=== PATIENT | male | born 1960 | race Caucasian/White ===

== ENCOUNTER 2023-09-01 06:03 | Inpatient (IN) ==
--- NOTE | 2023-07-22 08:43 | Anesthesiology Consultation ---
Date of Service July 22, 2023 Assessment & Plan (1) Encounter for pre-operative examination: - Check BSG AM DOS - Infectious disease screening: Per assessment on 07/17/23: No known infectious disease contacts or current infectious disease symptoms. No noted recent Covid positive test result. - Dulaglutide instructions: Patient informed by PAT RN to stop 7 days prior to surgery. DOS 08/03/23. Advised last dose to be 07/26/23. Chart Review Chart Review: Acceptable Risk for Surgery and Patient NOT seen in Pre Admission Testing History Surgery Operation Date: 08/03/23 12:25 Proposed Procedures p C6-C7 Anterior Cervical Discectomy Fusion, Spinal Cord Monitoring - Myron Zambrano, Height/Weight Height: 5 ft 9 in Weight: 97.522 kg Allergies Allergy/AdvReac Type Severity Reaction Status Date / Time No Known Allergies Allergy Verified 07/17/23 08:02 Medications Home Medications Medication Instructions Recorded Confirmed Last Taken dulaglutide 3 mg/0.5 mL 3 mg subcut WK 07/16/23 07/17/23 Unknown subcutaneous pen injector (Trulicity) gabapentin 400 mg capsule 400 mg PO TID 07/16/23 07/17/23 Unknown glipizide 5 mg tablet 5 mg PO BID 07/16/23 07/17/23 Unknown insulin lispro 100 unit/mL 13 - 18 sliding scale dose subcut 07/16/23 07/17/23 Unknown subcutaneous solution (Humalog USEASDIRECTD U-100 Insulin) metformin 1,000 mg tablet 1,000 mg PO BID 07/16/23 07/17/23 Unknown amitriptyline 50 mg tablet 50 mg PO HS 07/17/23 07/17/23 Unknown cyclobenzaprine 10 mg tablet 10 mg PO BID 07/17/23 07/17/23 Unknown fenofibrate micronized 67 mg 67 mg PO QPM 07/17/23 07/17/23 Unknown capsule lisinopril 40 mg tablet 40 mg PO QAM 07/17/23 07/17/23 Unknown meloxicam 7.5 mg tablet 7.5 mg PO BID 07/17/23 07/17/23 Unknown oxycodone 20 mg tablet,crush 20 mg PO BID 07/17/23 07/17/23 Unknown resistant,extended release 12 hr (OxyContin) oxycodone-acetaminophen 10 mg-325 1 tab PO TID 07/17/23 07/17/23 Unknown mg tablet (Percocet) Past Medical History Medical History Cervical radiculopathy Chronic back pain Diabetes Dyslipidemia HTN (hypertension) Idiopathic polyneuropathy Past Family History Family History Other No family history of adverse response to anesthesia Past Surgical History Surgical History Hx of colonoscopy Hx of fusion of cervical spine C5-C6 Hx of hernia repair Hx of spinal surgery decompression lumbar area Social History Smoking Status: Current every day smoker Smoking cigarettes per day: 15 per day- advised Do You Dip or Chew Tobacco: No Hx Alcohol Use: Yes alcohol intake frequency: holidays/special occasions only Hx Substance Use: No substance use type: does not use Lab Results Anesthesia Preop Results Results Anesthesia Widget: WBC 12.57 K/ul (4.8-10.8) H 07/21/23 Hgb 14.6 g/dl (14.0-18.0) 07/21/23 Hct 42.2 % (42.0-52.0) 07/21/23 Plt 188 K/uL (130-400) 07/21/23 Na 140 mmol/L (136-145) 07/21/23 K 4.8 mmol/L (3.5-5.1) 07/21/23 Cl 108 mmol/L (98-107) H 07/21/23 CO2 23 mmol/L (21-32) 07/21/23 BUN 30 mg/dl (6-23) H 07/21/23 Creat 1.16 mg/dl (0.6-1.4) 07/21/23 Glucose Level 69 mg/dl (70-99(Fasting)) L 07/21/23 PT 10.7 Seconds (9.0-12.0) 07/21/23 PTT 30 Seconds (21-31) 07/21/23 INR 1.0 (0.9-1.1) 07/21/23 Urine Color Yellow 07/21/23 Urine Appearance Clear (Clear) 07/21/23 Urine pH 5.0 (4.5-7.5) 07/21/23 Urine Specific [place]ora 1.013 (1.000-1.030) 07/21/23 Urine Protein 2+ (Negative) H 07/21/23 Urine Glucose (UA) Negative (Negative) 07/21/23 Urine Ketones Negative (Negative) 07/21/23 Urine Blood Negative (Negative) 07/21/23 Urine Nitrite Negative (Negative) 07/21/23 Urine Bilirubin Negative (Negative) 07/21/23 Urine Urobilinogen Negative (Negative) 07/21/23 Urine Leukocyte Esterase Negative (Negative) 07/21/23 Urine WBC (Auto) 0-5 /hpf (0-5) 07/21/23 Urine RBC (Auto) 0-2 /hpf (0-2) 07/21/23 Urine Hyaline Casts (Auto) 0-2 /lpf (0-2) 07/21/23 Urine Epithelial Cells (Auto) 0-2 /hpf (0-2) 07/21/23 Urine Bacteria (Auto) None Seen (None Seen) 07/21/23 Blood Type O Positive 07/21/23 Antibody Screen NEGATIVE 07/21/23 Testing Electrocardiogram Date: 07/21/23 Findings: + NSR @ (79) Chest X-Ray Date: 07/21/23 FINDINGS: Small linear densities at the right lung base favor subsegmental at electasis or scarring. Otherwise, lungs are clear. The heart is normal in size. No pleural effusions. No pneumothorax. Cervical spinal fusion hardware is noted. IMPRESSION: No acute process.
[2023-09-01] MEDS: LR 60ML/HR IV SCH (06:46)
[2023-09-01] MEDS: LR 15ML/HR IV SCH (06:46)
[2023-09-01] MEDS: CeleBREX 200 MG CAP PO SCH (06:47)
[2023-09-01] MEDS: GABAPENTIN 300 MG CAP PO SCH (06:47)
[2023-09-01] MEDS: ACETAMINOPHEN 500 MG TAB PO SCH (06:47)
[2023-09-01] MEDS ORDERED: PROPOFOL IV EMULSION 10 MG/ML 20 ML VIAL IV ONE (06:58)
[2023-09-01] MEDS ORDERED: fentaNYL citrate PF 100 MCG/2 ML VIAL ONE (06:58)
[2023-09-01] MEDS ORDERED: LIDOCAINE 2% 2 ML VIAL/AMP(20MG/ML) INFIL ONE (06:58)
[2023-09-01] MEDS ORDERED: ONDANSETRON INJ 2 MG/ML 2 ML VIAL ONE (06:58)
[2023-09-01] MEDS ORDERED: ROCURONIUM BROMIDE 10 MG/ML 5 ML VIAL IV ONE (06:58)
[2023-09-01] MEDS ORDERED: MIDAZOLAM HCL 1 MG/ML 2ML VIAL ONE (06:58)
[2023-09-01] MEDS ORDERED: DEXAMETHASONE SOD INJ 4 MG/ML VIAL ONE (06:58)
[2023-09-01] MEDS ORDERED: GLYCOPYRROLATE 0.2 MG/ML VIAL ONE (06:58)
[2023-09-01] MEDS ORDERED: SUGAMMADEX SODIUM 200 MG/2 ML VIAL IV ONE (07:05)
--- NOTE | 2023-09-01 07:36 | History & Physical Bridge Note ---
Date of Service September 01, 2023 History & Physical Bridge Note I have examined the patient, reviewed the History & Physical and in the interval since the performance of the History & Physical I have noted the following changes of clinical significance: no changes noted
[2023-09-01] MEDS ORDERED: PROMETHAZINE HCL 6.25 MG in SODIUM CHLORIDE 0.9% 50 ML IV PRN (07:38)
[2023-09-01] MEDS ORDERED: ATROPINE SULFATE 0.1 MG/ML 10ML SYR IV PRN (07:38)
[2023-09-01] MEDS ORDERED: ONDANSETRON INJ 2 MG/ML 2 ML VIAL IV PRN ×2 (07:38→11:01)
[2023-09-01] MEDS ORDERED: ePHEDrine sulfate 50 MG/ML AMP IV PRN (07:38)
--- NOTE | 2023-09-01 07:39 | History & Physical Report ---
Date of Service September 01, 2023 Assessment & Plan (1) Cervical stenosis of spinal canal: Plan: Anterior cervical discectomy and fusion see 6 C7, hardware removal C5-C6 History of Present Illness Chief Complaint: Neck and arm pain Primary Care Provider: Alvaro Kohler MD This is a 63-year-old male presents chronic persistent neck and arm pain and failing course of nonoperative care is here for surgical intervention. Allergies Allergy/AdvReac Type Severity Reaction Status Date / Time No Known Allergies Allergy Verified 09/01/23 06:32 Home Medications Medication Instructions Recorded Confirmed Type dulaglutide 3 mg/0.5 mL 3 mg subcut WK 07/16/23 09/01/23 History subcutaneous pen injector (Trulicity) gabapentin 400 mg capsule 400 mg PO TID 07/16/23 09/01/23 History glipizide 5 mg tablet 5 mg PO BID 07/16/23 09/01/23 History insulin lispro 100 unit/mL 13 - 18 sliding scale dose subcut 07/16/23 09/01/23 History subcutaneous solution (Humalog USEASDIRECTD U-100 Insulin) metformin 1,000 mg tablet 1,000 mg PO BID 07/16/23 09/01/23 History amitriptyline 50 mg tablet 50 mg PO HS 07/17/23 09/01/23 History cyclobenzaprine 10 mg tablet 10 mg PO BID 07/17/23 09/01/23 History fenofibrate micronized 67 mg 67 mg PO QPM 07/17/23 09/01/23 History capsule lisinopril 40 mg tablet 40 mg PO QAM 07/17/23 09/01/23 History meloxicam 7.5 mg tablet 7.5 mg PO BID 07/17/23 09/01/23 History oxycodone 20 mg tablet,crush 20 mg PO BID 07/17/23 09/01/23 History resistant,extended release 12 hr (OxyContin) oxycodone-acetaminophen 10 mg-325 1 tab PO TID 07/17/23 09/01/23 History mg tablet (Percocet) Past Med/Surg History Problem List (Updated 09/01/23 @ 07:37 by Myron Zambrano DO) Cervical stenosis of spinal canal Medical History Cervical radiculopathy Chronic back pain Diabetes Dyslipidemia HTN (hypertension) Idiopathic polyneuropathy Surgical History Hx of colonoscopy Hx of fusion of cervical spine C5-C6 Hx of hernia repair Hx of spinal surgery decompression lumbar area Family History Other No family history of adverse response to anesthesia Social History Smoking Status: Current every day smoker Tobacco Type: Cigarettes Cigarettes Per Day: 15 per day- advised; Second Hand Exposure: No; Do You Dip or Chew Tobacco: No; Tobacco Cessation Education Requested by Patient: No Hx Alcohol Use: Yes Hx Substance Use: No Preferred Language: Armenian Communication Ability: Effective Denture Model Maker Required: No Beliefs That Will Affect Care: None Current Living Situation: Alone Other Information That Helps Us Care for You: No Feels Safe at Home: Yes Safety Concerns: Feels Safe At This Time Assistive Devices: Denture - Upper and Glasses Physical Exam Physical Exam: Patient is alert and oriented Heart regular in rhythm Lungs clear Results & Data Results & Data Vital Signs (Past 12 Hours) Vital Signs Temp Pulse Resp BP Pulse Ox O2 Del Method 09/01/23 06:37 36.4 C L 80 20 170/95 H 99 Room Air
[2023-09-01] MEDS: ceFAZolin 2000MG 2,000 MG/15 ML SYR IV SCH ×2 (07:44→16:32)
[2023-09-01] MEDS: ceFAZolin 330 MG/ML 1 GM VIAL ONE (08:19)
--- NOTE | 2023-09-01 09:04 | Operative Report ---
Post Operative Report Pre & Post Diagnosis Operation Date: 09/01/23 07:45 Pre-Op Diagnosis: Cervical spinal stenosis with radiculopathy Post-Op Diagnosis: Same I identified the patient and participated in the time-out.: Yes Procedure Operation Date: 09/01/23 07:45 Actual Procedures #1 removal of anterior cervical plate C5-C6. #2 exploration of fusion C5-C6. #3 anterior cervical discectomy with bilateral foraminotomies C6-C7. #4 anterior cervical arthrodesis C6-C7. #5 placement spiral 10 mm cage filled with os design bone graft C6-C7. #6 application of K2 M plate and screws across C6- C7. Surgeon Myron Zambrano, Decision Support Analyst Sravanthi Todd Estimated Blood Loss 10 Findings Consistent with Post-Op Diagnosis Specimens None Indications This is a 63-year-old male who presents problems diagnosis of failed course of nonoperative care is here for surgical invention. Description of Procedure Patient met with identified informed consent obtained. Patient was then taken to the operative suite underwent patient placed in spine position on the Juvenal table with head Herr polisher balance screwhead. All bony promises well-padded eyes inspected to ensure no external pressure placed upon the. This point the anterior cervical spine was prepped and draped in normal sterile fashion. The assistance of fluoroscopy identifying the C6 vertebral body and a transverse incision was placed along the right anterior aspect of the cervical spine overlying this region. Blunt dissection with assistance of bipolar electrocautery was formed down to and exposing the anterior cervical spine from C5-C7. The plate was identified at C5-C6. It was subsequently removed. I explored the fusion mass noting it to be mature and intact. I then performed a complete discectomy of C6-C7 out to the uncovertebral notch bilaterally. [place] distraction pins utilized to assist in visualization. Removed all posterior annular fibers longitudinal ligament bilateral foraminotomies performed. Endplates were to subcortical bleeding bone and a 10 mm spiral cage filled with os design bone graft tapped in position. Distracting and pressors removed and a K2 M plate and screws applied with the assistance of fluoroscopy. The incision was then copiously irrigated explored to ensure no damage to surrounding structures or many bleeding. 10 round ELVA drain inserted. The incision was then closed with 2 Vicryl in the fascia and 4 Monocryl for final skin closure. Steri-Strips sterile dressing placed. Patient awakened taken to PACU stable condition. Please note spinal cord monitoring was utilized at the procedure no changes noted. Lastly Sravanthi Todd was present at the insert prior procedure and all the patient positioning complex portions of the surgery and final skin closure. I attest to the content of the Intraoperative Record and any orders documented therein. Any exceptions are noted below.
[2023-09-01] MEDS: fentaNYL citrate PF 100 MCG/2 ML VIAL IV PRN (09:29)
[2023-09-01] MEDS: HYDROmorphone INJ 2 MG/ML SYR/VIAL IV PRN (09:39)
--- NOTE | 2023-09-01 10:29 | Fluoroscopy Report ---
FL cervical 2-3V CLINICAL HISTORY: C6-C7 ACDF TECHNIQUE: 2 views were obtained with the C-arm in the OR with the above procedure. Total fluoroscopy time was 13.4 seconds. Radiation dose was 4.29 mGy. Comparison: None available at the time of this dictation. FINDINGS/IMPRESSION: Intraoperative images were obtained of ACDF placement Please correlate with intraoperative fluoroscopy and operative report. ACT 112: Negative or not required by law. Electronically signed by: Melvin Orellana M.D. 09/01/2023 10:27 AM
--- NOTE | 2023-09-01 10:36 | Anesthesiology Progress Note ---
Date of Service September 01, 2023 Anesthesia Post Procedure Vital Signs Vital Signs: Temp Pulse Pulse Resp BP Pulse Ox O2 Del Method 09/01/23 10:25 36.4 C L 78 16 153/81 H 95 Nasal Cannula 09/01/23 10:15 79 12 137/84 95 Nasal Cannula 09/01/23 10:00 36.4 C L 77 20 141/78 H 95 Nasal Cannula 09/01/23 09:50 78 12 139/79 95 Oxymask 09/01/23 09:40 77 15 142/83 H 95 Oxymask 09/01/23 09:30 77 16 132/71 94 Oxymask 09/01/23 09:20 79 18 138/75 94 Oxymask 09/01/23 09:10 36.2 C L 84 14 125/78 94 Oxymask 09/01/23 06:37 36.4 C L 80 20 170/95 H 99 Room Air O2 Flow Rate 09/01/23 10:25 2 09/01/23 10:15 2 09/01/23 10:00 2 09/01/23 09:50 4 09/01/23 09:40 4 09/01/23 09:30 4 09/01/23 09:20 6 09/01/23 09:10 6 09/01/23 06:37 Pain Intensity Back: Pain Intensity: 5 Neck: Pain Intensity: 4 Transfer of Care Handoff Completed per policy Notes Mental Status: alert / awake / arousable and participated in evaluation Patient Amnestic to Procedure: Yes Nausea / Vomiting: adequately controlled Pain: adequately controlled Airway Patency, RR, SpO2: stable & adequate BP & HR: stable & adequate Hydration State: stable & adequate Anesthetic Complications: no major complications apparent
[2023-09-01] MEDS ORDERED: bisacodyL 10 MG SUPP PR PRN (11:01)
[2023-09-01] MEDS ORDERED: LORazepam 0.5 MG TAB PO PRN (11:01)
[2023-09-01] MEDS ORDERED: FAMOTIDINE 20 MG TAB PO PRN (11:01)
[2023-09-01] MEDS ORDERED: MAGNESIUM HYDROXIDE SUSP 30 ML UDC PO PRN (11:01)
[2023-09-01] MEDS ORDERED: ONDANSETRON 4 MG OD TAB PO PRN (11:01)
[2023-09-01] MEDS ORDERED: DO NOT ADMINISTER FLU VACCINE PRN (11:01)
[2023-09-01] MEDS ORDERED: METOCLOPRAMIDE HCL INJ 5 MG/ML 2 ML VIAL IV PRN (11:01)
[2023-09-01] MEDS ORDERED: dexAMETHasone 8 MG in SYRINGE 0 ML IV PRN (11:01)
[2023-09-01] MEDS ORDERED: SOD PHOSPHATE/SOD BIPHOSPHATE ENEMA 132 ML BTL PR PRN (11:01)
[2023-09-01] MEDS ORDERED: diphenhydrAMINE Capsule 25 MG CAP PO PRN (11:01)
[2023-09-01] MEDS ORDERED: NALOXONE HCL 0.4 MG/1 ML VIAL/CARP IV PRN (11:01)
[2023-09-01] MEDS ORDERED: DO NOT ADMINISTER PNEUMOCOCCAL VACCINE PRN (11:01)
[2023-09-01] MEDS ORDERED: ALUMINUM/MAGNESIUM SUSP 30 ML UDC PO PRN (11:01)
[2023-09-01] MEDS ORDERED: PHARMACY GLYCEMIC MGMT CONSULT PRN (11:01)
[2023-09-01] MEDS ORDERED: HYDROmorphone INJ 0.5 MG/0.5 ML SYR IV PRN (11:01)
[2023-09-01] MEDS ORDERED: RACEPINEPHRINE 2.25% NEBU SOLN 0.5 ML VIAL INH PRN (11:01)
[2023-09-01] MEDS ORDERED: HYDROmorphone INJ 1 MG/ML SYRINGE IV PRN (11:01)
[2023-09-01] MEDS ORDERED: ACETAMINOPHEN 500 MG TAB PO PRN (11:01)
[2023-09-01] MEDS ORDERED: ACETAMINOPHEN 1,000 MG/100 ML VIAL IV PRN (11:01)
[2023-09-01] MEDS ORDERED: NON-FORMULARY MEDICATION (Dulaglutide [Trulicity] 3 mg/0.5 mL Pen Injector) SQ SCH (11:01)
[2023-09-01] MEDS ORDERED: hydrOXYzine HCl 25 MG TAB PO PRN (11:01)
[2023-09-01] MEDS ORDERED: PROMETHAZINE HCL 12.5 MG in SODIUM CHLORIDE 0.9% 50 ML IV PRN (11:01)
[2023-09-01] MEDS: FLOSEAL HEMOSTATIC MATRIX 10ML TOP ONE (11:04)
[2023-09-01] MEDS ORDERED: CARBOHYDRATES FOR HYPOGLYCEMIA PO PRN (11:30)
[2023-09-01] MEDS ORDERED: DEXTROSE 50% 50 ML SYRINGE IV PRN (11:30)
[2023-09-01] MEDS ORDERED: GLUCOSE 40% GEL 15 GM TUBE PO PRN (11:30)
[2023-09-01] MEDS ORDERED: GLUCOSE 10 TAB/TUBE PO PRN (11:30)
[2023-09-01] MEDS ORDERED: GLUCAGON FOR INJ 1 MG VIAL IM PRN (11:30)
[2023-09-01] MEDS: oxyCODONE/ACETAMINOPHEN 10-325 TAB PO PRN (11:34)
--- NOTE | 2023-09-01 11:34 | Pharmacy Report ---
Pharmacy Glycemic Short Note 2 - Date of Service September 01, 2023 - Glycemic Short BSG Results (Last 24 hours): 09/01/23 09/01/23 06:45 09:14 POC Glucose 179 H 181 H OUTPATIENT ANTIDIABETIC REGIMEN: * Metformin 1 g PO BIDM * Glipizide 5 mg PO BIDM * Trulicity 3 mg SC weekly (Sundays) HbA1c ordered for 09/02/23 ASSESSMENT: * MAIK is a 63 year old male POD #0 s/p spinal surgery * Received 8 mg IV dexamethasone in OR * No ongoing steroids ordered at this time * Preop blood sugar of 179 mg/dL, postop blood sugar of 181 mg/dL * Will utilize aggressive weight-based SC basal/bolus regimen today PLAN FOR INPATIENT GLYCEMIC CONTROL: * Hold outpatient oral diabetes medications * Basal insulin * Lantus 25 units SC x 1 (~0.3 unit/kg adjusted body weight) * Reassess in AM * Bolus insulin * NovoLog per scale ACHS or Q6hrs while NPO * Goal Range: Low 110 mg/dL - High 140 mg/dL * Correction Factor: 20 mg/dL/unit * Nutritional / Prandial insulin per carb ratio of 1 unit per 6 grams CHO consumed
--- NOTE | 2023-09-01 11:47 | Hospitalist Consultation ---
Date of Consultation September 01, 2023 Assessment & Plan (1) Cervical stenosis of spinal canal: - POD #1 anterior cervical discectomy by Dr. Zambrano - Pain management, bowel regimen and DVT ppx per the primary team - PT/OT consults - Hgb was 14 previously, follow with am labs - Follow am CBC to monitor for acute blood loss-- hgb of 14.6/Hct 42.2 on 07/21/23 - Cessation of tobacco use encouraged at bedside as pt admits to smoking 10-15 cigarettes daily. No nicotine patch at this time. (2) HTN (hypertension): - Cont home meds including lisinopril (3) Dyslipidemia: - Chronic, stable, cont fenofibrate (4) Diabetes: - Holding home metformin and glipizide, ISS with accuchecks achs - Check A1C with am lab - Trulicity dosing weekly can resume as outpatient DVT ppx: teds, scds Lines: ELVA cervical drain, PIV x 1 FEN/GI: Clears, advance per primary team Dispo: From home, likely to remain in the hospital x 1-2 days Thank you for involving us in the care of Mr. Reeder. Please do not hesitate to call with questions or concerns. At this time medicine service will follow along. A total of 45 minutes were spent with greater than 50% of that time face to face with the patient, personally reviewing all current laboratories, imaging studies, past medication reconciliation, outpatient chart review, and discussion with specialists to collaborate care for the patient with attending. Please see attending documentation for corrections and/or additions. Supervising Physician Co-Signing Physician Notes I have reviewed the advanced practitioner's documentation on the date of service referenced in note, and I agree with, and take responsibility for the plan of care. Pt was seen at [facility] post op. He is stable post op. His pain is controlled I have spent a total of 15 minutes coordinating, documenting and providing care for the patient excluding time spent in the performance of separately billed services or time spent by another provider/QHP. History of Present Illness Reason for Consultation: Medical management Requesting Physician: Dr. Zambrano Attending Physician: Myron Zambrano, DO History of Present Illness This is a 63 yo M with PMHx of cervical radiculopathy, chronic back pain, DM II, HTN, HLD, idiopathic polyneuropathy and cervical spinal stenosis with radiculopathy who presents to the hospital for elective surgical procedure of C6-C7 Anterior Cervical Discectomy Fusion by Dr. Zambrano on 09/01/2023. Patient is doing well. His fiance is present with him at bedside and supports the history. Patient denies any acute pain currently, no numbness, no tingling, is able to swallow without any difficulty. He does not feel swollen in the mouth and denies any issues with breathing. Patient does not wear any supplemental O2 at baseline, history of having sleep study and reports that he was previously borderline for needing CPAP so does not use it. He admits to smoking 10 to 15 cigarettes daily for the past year and a half, picked it up after not smoking for 10 years. Denies any alcohol use. Denies any other illicit substance use. Allergies Allergy/AdvReac Type Severity Reaction Status Date / Time No Known Allergies Allergy Verified 09/01/23 06:32 Home Medications Medication Instructions Recorded Confirmed Type dulaglutide 3 mg/0.5 mL 3 mg subcut WK 07/16/23 09/01/23 History subcutaneous pen injector (Trulicity) gabapentin 400 mg capsule 400 mg PO TID 07/16/23 09/01/23 History glipizide 5 mg tablet 5 mg PO BID 07/16/23 09/01/23 History insulin lispro 100 unit/mL 13 - 18 sliding scale dose subcut 07/16/23 09/01/23 History subcutaneous solution (Humalog USEASDIRECTD U-100 Insulin) metformin 1,000 mg tablet 1,000 mg PO BID 07/16/23 09/01/23 History amitriptyline 50 mg tablet 50 mg PO HS 07/17/23 09/01/23 History cyclobenzaprine 10 mg tablet 10 mg PO BID 07/17/23 09/01/23 History fenofibrate micronized 67 mg 67 mg PO QPM 07/17/23 09/01/23 History capsule lisinopril 40 mg tablet 40 mg PO QAM 07/17/23 09/01/23 History meloxicam 7.5 mg tablet 7.5 mg PO BID 07/17/23 09/01/23 History oxycodone 20 mg tablet,crush 20 mg PO BID 07/17/23 09/01/23 History resistant,extended release 12 hr (OxyContin) oxycodone-acetaminophen 10 mg-325 1 tab PO TID 07/17/23 09/01/23 History mg tablet (Percocet) Patient History Medical History Cervical radiculopathy Chronic back pain Diabetes Dyslipidemia HTN (hypertension) Idiopathic polyneuropathy Surgical History Hx of colonoscopy Hx of fusion of cervical spine C5-C6 Hx of hernia repair Hx of spinal surgery decompression lumbar area Family History Other No family history of adverse response to anesthesia Social History Smoking Status: Current every day smoker Tobacco Type: Cigarettes Cigarettes Per Day: 15 per day- advised; Second Hand Exposure: No; Do You Dip or Chew Tobacco: No; Tobacco Cessation Education Requested by Patient: No Hx Alcohol Use: Yes Hx Substance Use: No Preferred Language: Icelandic Communication Ability: Effective Home Supervisor Required: No Beliefs That Will Affect Care: None Current Living Situation: Alone Other Information That Helps Us Care for You: No Feels Safe at Home: Yes Safety Concerns: Feels Safe At This Time Assistive Devices: Denture - Upper and Glasses Review of Systems Review of Systems: Constitutional: No fever, sweats or chills Eyes: No diplopia, no worsening or blurred vision ENT: normal hearing, no trouble swallowing Respiratory: No cough, sputum, dyspnea at rest or on exertion Cardiovascular: No chest pain, tightness or palpitations Abdomen: No pain, nausea, vomiting, diarrhea or constipation Musculoskeletal: No joint pain, calf pain, swelling Neurologic: No weakness, numbness/tingling, or balance problems Psychiatric: No anxiety or depression Skin: No rash or itch Physical Exam Physical Exam: General: awake, alert, no apparent distress, white, male Head: Normocephalic, atraumatic, + cervical collar in place, ELVA drain with serosanguineous outs ENT: PERRL, EOMI, no pharyngeal exudate, mucous membranes moist Chest: Clear to auscultation, on room air, no adventitious breath sounds Cardiac: Regular rate and rhythm, no murmur, no JVD, normal peripheral pulses, good capillary refill Abdominal: NABS x 4 quadrants, soft, nondistended, nontender to palpation, no rebound or guarding Extremities: Normal inspection, no peripheral edema or erythema, calfs nontender to palpation Psych: Normal mood and affect Neuro: AAO x 3, strength intact bilaterally and rated 5/5, no motor deficits, speech is clear, no peripheral sensory deficits Results & Data Results & Data Vital Signs (Past 12 Hours) Vital Signs Temp Pulse Pulse Resp BP Pulse Ox O2 Del Method 09/01/23 11:35 36.4 C L 77 18 158/74 H 97 Room Air 09/01/23 11:27 Room Air 09/01/23 11:05 36.5 C 76 18 144/76 H 99 Nasal Cannula 09/01/23 11:00 88 15 93 Room Air 09/01/23 10:50 80 12 137/79 96 Nasal Cannula 09/01/23 10:35 77 14 146/79 H 95 Nasal Cannula 09/01/23 10:25 36.4 C L 78 16 153/81 H 95 Nasal Cannula 09/01/23 10:15 79 12 137/84 95 Nasal Cannula 09/01/23 10:00 36.4 C L 77 20 141/78 H 95 Nasal Cannula 09/01/23 09:50 78 12 139/79 95 Oxymask 09/01/23 09:40 77 15 142/83 H 95 Oxymask 09/01/23 09:30 77 16 132/71 94 Oxymask 09/01/23 09:20 79 18 138/75 94 Oxymask 09/01/23 09:10 36.2 C L 84 14 125/78 94 Oxymask 09/01/23 06:37 36.4 C L 80 20 170/95 H 99 Room Air O2 Flow Rate 09/01/23 11:35 09/01/23 11:27 09/01/23 11:05 2 09/01/23 11:00 2 09/01/23 10:50 2 09/01/23 10:35 2 09/01/23 10:25 2 09/01/23 10:15 2 09/01/23 10:00 2 09/01/23 09:50 4 09/01/23 09:40 4 09/01/23 09:30 4 09/01/23 09:20 6 09/01/23 09:10 6 09/01/23 06:37 Laboratory Results 09/01/23 09/01/23 09/01/23 11:37 09:14 06:45 POC Glucose 251 H 181 H 179 H Diagnostic Findings Cervical Spine X-Ray 09/01/23 07:45 FL cervical 2-3V CLINICAL HISTORY: C6-C7 ACDF TECHNIQUE: 2 views were obtained with the C-arm in the OR with the above procedure. Total fluoroscopy time was 13.4 seconds. Radiation dose was 4.29 mGy. Comparison: None available at the time of this dictation. FINDINGS/IMPRESSION: Intraoperative images were obtained of ACDF placement Please correlate with intraoperative fluoroscopy and operative report. ACT 112: Negative or not required by law. Electronically signed by: Melvin Orellana M.D. 09/01/2023 10:27 AM
[2023-09-01] MEDS: LACTATED RINGER'S 1,000 ML IV SCH (12:05)
[2023-09-01] MEDS: LANTUS PER UNIT CHARGE SC ONE (12:10)
[2023-09-01] MEDS: INSULIN ASPART PER UNIT CHARGE SC SCH (12:11)
[2023-09-01] MEDS: GABAPENTIN 400 MG CAP PO SCH (13:49)
[2023-09-01] MEDS: CYCLOBENZAPRINE HCL 10 MG TAB PO SCH (20:59)
[2023-09-01] MEDS: AMITRIPTYLINE HCL 50 MG TAB PO SCH (20:59)
[2023-09-01] MEDS: DOCUSATE SODIUM/SENNA 50/8.6MG TAB PO SCH (20:59)
[2023-09-01] MEDS: oxyCODONE HCL 20 MG TABCR (OxyCONTIN) PO SCH (20:59)
[2023-09-01] MEDS ORDERED: glipiZIDE 5 MG TAB PO SCH (21:00)
[2023-09-02] MEDS: LORazepam 0.5 MG in SYRINGE 0.25 ML IV PRN (02:26)
[2023-09-02] MEDS: POLYETHYLENE (MIRALAX) 17 GM PACK PO SCH (06:21)
[2023-09-02 07:31] LABS: Estimated Average Glucose 186 mg/dl; Hemoglobin A1C 8.1 % (4.5-5.6)
[2023-09-02] MEDS: lisinopril 40 MG TAB PO SCH (08:01)
--- NOTE | 2023-09-02 08:21 | Hospitalist Progress Note ---
Date of Service September 02, 2023 Assessment & Plan (1) Cervical stenosis of spinal canal: Plan: - S/p anterior cervical discectomy by Dr. Zambrano on 09/01/2023 - Pain management, bowel regimen and DVT ppx per the primary team - PT/OT consults - Hgb was 14 previously - Follow am CBC to monitor for acute blood loss-- hgb of 14.6/Hct 42.2 on 07/21/23 - Cessation of tobacco use encouraged at bedside as pt admits to smoking 10-15 cigarettes daily. No nicotine patch at this time. Acute blood loss anemia, post-op vs. dilutional - current Hgb 12.4 (down from 14) - expected, no need for blood transfusion (2) HTN (hypertension): Plan: - Cont home meds including lisinopril (3) Dyslipidemia: Plan: - Chronic, stable, cont fenofibrate (4) Diabetes: Plan: - Holding home metformin and glipizide, ISS with accuchecks achs - Current hgb A1C 8.1% -> will need outpt follow up - Trulicity dosing weekly can resume as outpatient DVT ppx: teds, scds Lines: ELVA cervical drain, PIV x 1 Dispo: per primary (surg.) service. pt is from home Thank you for involving us in the care of Mr. Reeder. Please do not hesitate to call with questions or concerns. At this time medicine service will follow along. Admission and Anticipated Discharge Date Admission Date: September 01, 2023 Subjective Pt seen in follow up in med consult , pt s/p cervical spine surgery Pt is feeling well, says he had a good night. Currently ambulating in hallway. no fever, chills, chest pain, shortness of breath or abd. pain Says his previous symptoms (left fingers numbness/ pain) has resolved Review of Systems Review of Systems: All systems reviewed & are unremarkable except as noted in Subjective Physical Exam Physical Exam: General: awake, alert, M in no apparent distress Head: Normocephalic, atraumatic, + cervical collar in place, ELVA drain with serosanguineous outs ENT: PERRL, EOMI Chest: Clear to auscultation, on room air, no adventitious breath sounds Cardiac: Regular rate and rhythm, no murmur, no JVD, normal peripheral pulses, good capillary refill Abdominal: NABS x 4 quadrants, soft, nondistended, nontender to palpation, no rebound or guarding Extremities: Normal inspection, no peripheral edema or erythema Psych: Normal mood and affect Neuro: AAO x 3, speech is clear, moves extremities Results & Data Results & Data Vital Signs (Past 12 Hours) Vital Signs Temp Pulse Resp BP Pulse Ox O2 Del Method O2 Flow Rate 09/02/23 07:33 37 C 68 18 150/81 H 93 Room Air 09/02/23 07:26 68 17 91 Room Air 09/02/23 06:15 37.0 C 69 16 137/73 93 Room Air 09/02/23 04:09 36.6 C 67 16 138/72 94 Nasal Cannula 2 09/02/23 03:10 155/70 H 09/02/23 02:35 68 16 95 Room Air 09/02/23 02:00 36.5 C 79 18 175/80 H 93 Room Air 09/01/23 23:59 36.9 C 65 16 146/67 H 93 Room Air 09/01/23 23:45 71 16 93 Room Air 09/01/23 22:00 36.6 C 71 18 150/75 H 96 Room Air Laboratory Results 09/02/23 09/02/23 09/02/23 Range/Units 07:41 06:00 05:58 WBC 12.34 H (4.8-10.8) K/ul RBC 4.01 L (4.70-6.10) M/uL Hgb 12.4 L (14.0-18.0) g/dl Hct 36.2 L (42.0-52.0) % MCV 90.3 (80.0-100.0) fL MCH 30.9 (25.0-34.0) pg MCHC 34.3 (32.0-36.0) g/dL RDW Std Deviation 45.1 (36.4-46.3) fL RDW Coeff of Flex 13.6 (11.5-14.5) % Plt Count 150 (130-400) K/uL MPV 10.7 (9.4-12.4) fL Sodium 138 (136-145) mmol/L Potassium 3.5 (3.5-5.1) mmol/L Chloride 106 (98-107) mmol/L Carbon Dioxide 24 (21-32) mmol/L Anion Gap 8 (3-11) BUN 14 (6-23) mg/dl Creatinine 0.83 (0.6-1.4) mg/dl Est Cr Clr Drug Dosing 100.7 ml/min Est GFR ( Amer) 107.0 ml/min Est GFR (Non-Af Amer) 92.3 ml/min BUN/Creatinine Ratio 16.9 (10-20) Glucose 149 H (70-99(Fasting)) mg/dl POC Glucose 201 H (70-99) mg/dl Estimat Average Glucose 186 mg/dl Hemoglobin A1c 8.1 H (4.5-5.6) % Calcium 8.8 (8.6-10.3) mg/dl Phosphorus 3.3 (2.5-4.9) mg/dl Magnesium 1.8 (1.7-2.4) mg/dl 09/01/23 09/01/23 09/01/23 Range/Units 20:30 16:28 11:37 WBC (4.8-10.8) K/ul RBC (4.70-6.10) M/uL Hgb (14.0-18.0) g/dl Hct (42.0-52.0) % MCV (80.0-100.0) fL MCH (25.0-34.0) pg MCHC (32.0-36.0) g/dL RDW Std Deviation (36.4-46.3) fL RDW Coeff of Flex (11.5-14.5) % Plt Count (130-400) K/uL MPV (9.4-12.4) fL Sodium (136-145) mmol/L Potassium (3.5-5.1) mmol/L Chloride (98-107) mmol/L Carbon Dioxide (21-32) mmol/L Anion Gap (3-11) BUN (6-23) mg/dl Creatinine (0.6-1.4) mg/dl Est Cr Clr Drug Dosing ml/min Est GFR ( Amer) ml/min Est GFR (Non-Af Amer) ml/min BUN/Creatinine Ratio (10-20) Glucose (70-99(Fasting)) mg/dl POC Glucose 224 H 214 H 251 H (70-99) mg/dl Estimat Average Glucose mg/dl Hemoglobin A1c (4.5-5.6) % Calcium (8.6-10.3) mg/dl Phosphorus (2.5-4.9) mg/dl Magnesium (1.7-2.4) mg/dl Medications Administered Current Inpatient Medications Acetaminophen (Acetaminophen 500 Mg Tab) 1,000 mg PO Q8H PRN PRN Reason: MILD Pain Scale 1,2,3 & Pre PT Stop: 10/01/23 11:00 Al Hydrox/Mg Hydrox/Simethicone (Aluminum/Magnesium Susp 30 Ml Udc) 30 ml PO Q6H PRN PRN Reason: Dyspepsia Stop: 10/01/23 11:00 Amitriptyline HCl (Amitriptyline Hcl 50 Mg Tab) 50 mg PO HS ELIZABETH Stop: 10/01/23 20:59 Last Admin: 09/01/23 20:59 Dose: 50 mg Bisacodyl (Bisacodyl 10 Mg Supp) 10 mg WI DAILY PRN PRN Reason: Constipation Stop: 10/01/23 11:00 Cyclobenzaprine HCl (Cyclobenzaprine Hcl 10 Mg Tab) 10 mg PO BID ELIZABETH Stop: 10/01/23 20:59 Last Admin: 09/02/23 08:02 Dose: 10 mg Dextrose (Dextrose 50% 50 Ml Syringe) 25 - 50 ml IV UD PRN; Protocol PRN Reason: Hypoglycemia Protocol Stop: 10/01/23 11:29 Diphenhydramine HCl (Diphenhydramine Capsule 25 Mg Cap) 25 mg PO Q6H PRN PRN Reason: Allergic Rhinitis/Insomnia Stop: 10/01/23 11:00 Epinephrine (Racepinephrine 2.25% Nebu Soln 0.5 Ml Vial) 0.5 ml INH NOW PRN PRN Reason: If stridor present Famotidine (Famotidine 20 Mg Tab) 20 mg PO Q12H PRN PRN Reason: Dyspepsia Stop: 10/01/23 11:00 Gabapentin (Gabapentin 400 Mg Cap) 400 mg PO TID ELIZABETH Stop: 10/01/23 13:59 Last Admin: 09/02/23 08:01 Dose: 400 mg Glucagon (Glucagon For Inj 1 Mg Vial) 1 mg IM UD PRN; Protocol PRN Reason: Hypoglycemia Protocol Stop: 10/01/23 11:29 Glucose (Glucose 40% Gel 15 Gm Tube) 15 - 30 gm PO UD PRN; Protocol PRN Reason: Hypoglycemia Protocol Stop: 10/01/23 11:29 Glucose (Glucose 10 Tab/Tube) 4 - 8 tab PO UD PRN; Protocol PRN Reason: Hypoglycemia Protocol Stop: 10/01/23 11:29 Hydromorphone HCl (Hydromorphone Inj 0.5 Mg/0.5 Ml Syr) 0.5 mg IV Q3H PRN PRN Reason: MODERATE Pain (Scale 4,5,6) & Pre PT Stop: 09/15/23 11:00 Hydromorphone HCl (Hydromorphone Inj 1 Mg/Ml Syringe) 1 mg IV Q3H PRN PRN Reason: SEVERE Pain (Scale 7,8,9,10) Stop: 09/15/23 11:00 Hydroxyzine HCl (Hydroxyzine Hcl 25 Mg Tab) 25 mg PO Q8H PRN PRN Reason: Anxiety Stop: 10/01/23 11:00 Dexamethasone 8 mg/ Syringe 2 mls @ 1 mls/min IV NOW PRN PRN Reason: If stridor present Promethazine HCl 12.5 mg/ (Sodium Chloride) 50.5 mls @ 202 mls/hr IV Q6H PRN PRN Reason: Nausea &/or Vomiting Stop: 10/01/23 11:00 Acetaminophen (Ofirmev) 1,000 mg in 100 mls @ 400 mls/hr IV Q8H PRN PRN Reason: Pain Rating 1-3 & Pre PT Stop: 09/02/23 11:01 Lorazepam 0.5 mg/ Syringe 0.5 mls @ 2 mls/min IV Q8H PRN; Protocol PRN Reason: Sedation/Anxiety Stop: 10/01/23 11:00 Last Admin: 09/02/23 02:26 Dose: 2 mls/min Influenza Virus Vaccine Quadrival (Do Not Administer Flu Vaccine) 1 each N/A PRN PRN PRN Reason: Notification Stop: 10/01/23 11:00 Insulin Aspart (Insulin Aspart Per Unit Charge) 0 units SC ACHS [facility] Stop: 10/01/23 11:29 Last Admin: 09/02/23 07:55 Dose: 13 units Lisinopril ([facility]op[place] 40 Mg Tab) [facility] [place] [facility] [place]: 10/02/23 08:59 Last Admin: 09/02/23 08:01 Dose: 40 mg Lorazepam (Lorazepam 0.5 Mg Tab) 0.5 mg PO Q8H PRN PRN Reason: Sedation/Anxiety Stop: 10/01/23 11:00 Magnesium Hydroxide (Magnesium Hydroxide Susp 30 Ml Udc) 30 ml PO Q24H PRN PRN Reason: Constipation Stop: 10/01/23 11:00 Metoclopramide HCl (Metoclopramide Hcl Inj 5 Mg/Ml 2 Ml Vial) 10 mg IV Q6H PRN PRN Reason: Nausea &/or Vomiting Stop: 10/01/23 11:00 Miscellaneous (Order Awaiting Action [Fenofibrate Micronized 67 Mg Capsule]) 1 each N/A QS ELIZABETH Stop: 10/01/23 15:59 Last Admin: 09/02/23 07:53 Dose: Not Given Miscellaneous (Carbohydrates For Hypoglycemia ) 15 - 30 gm PO UD PRN PRN Reason: Hypoglycemia Treatment Stop: 10/01/23 11:29 Miscellaneous Information (Pharmacy Glycemic Mgmt Consult) 1 each N/A UD PRN PRN Reason: Consult Stop: 10/01/23 11:00 Naloxone HCl (Naloxone Hcl 0.4 Mg/1 Ml Vial/Carp) 0.1 mg IV Q5M PRN PRN Reason: Oversedation/Resp depression Stop: 10/01/23 11:00 Ondansetron HCl (Ondansetron Inj 2 Mg/Ml 2 Ml Vial) 4 mg IV Q6H PRN PRN Reason: Nausea &/or Vomiting Stop: 10/01/23 11:00 Ondansetron HCl (Ondansetron 4 Mg Od Tab) 4 mg PO Q6H PRN PRN Reason: Nausea Stop: 10/01/23 11:00 Oxycodone HCl (Oxycodone Hcl 20 Mg Tabcr (Oxycontin)) 20 mg PO BID ELIZABETH Stop: 09/15/23 20:59 Last Admin: 09/01/23 20:59 Dose: 20 mg Oxycodone/Acetaminophen (Oxycodone/Acetaminophen 10-325 Tab) 1 - 2 tab PO Q4H PRN PRN Reason: Pain & Pre PT Stop: 09/15/23 11:00 Last Admin: 09/02/23 02:09 Dose: 2 tab Pneumococcal Polyvalent Vaccine (Do Not Administer Pneumococcal Vaccine) 1 each N/A PRN PRN PRN Reason: Notification Stop: 10/01/23 11:00 Polyethylene Glycol (Polyethylene (Miralax) 17 Gm Pack) 17 gm PO Q6 ELIZABETH Stop: 10/02/23 05:59 Last Admin: 09/02/23 06:21 Dose: 17 gm Senna/Docusate Sodium (Docusate Sodium/Senna 50/8.6mg Tab) 2 tab PO HS ELIZABETH Stop: 10/01/23 20:59 Last Admin: 09/01/23 20:59 Dose: 2 tab Sodium Biphosphate/Sodium Phosphate (Sod Phosphate/Sod Biphosphate Enema 132 Ml Btl) 132 ml WI ONE PRN PRN Reason: Constipation Stop: 10/01/23 11:00
[2023-09-02] MEDS: LANTUS PER UNIT CHARGE SC ONE (08:43)
[2023-09-02 08:45] LABS: BUN Creatinine Ratio 16.9 (10-20); Calcium 8.8 mg/dl (8.6-10.3); Creatinine Clr Calc Pharmacy 100.7 ml/min; Est GFR (Non-African American) 92.3 ml/min; Hematocrit (blood only) 36.2 % (42.0-52.0); Hemoglobin 12.4 g/dl (14.0-18.0); Magnesium 1.8 mg/dl (1.7-2.4); Mean Corpuscular Hemoglobin 30.9 pg (25.0-34.0); Mean Corpuscular Hgb Conc 34.3 g/dL (32.0-36.0); Mean Corpuscular Volume 90.3 fL (80.0-100.0); Mean Platelet Volume 10.7 fL (9.4-12.4); Phosphorus 3.3 mg/dl (2.5-4.9); Platelet Count 150 K/uL (130-400); Potassium 3.5 mmol/L (3.5-5.1); RDW Coefficient of Variation 13.6 % (11.5-14.5); RDW Standard Deviation 45.1 fL (36.4-46.3); Red Blood Count 4.01 M/uL (4.70-6.10); White Blood Count 12.34 K/ul (4.8-10.8)
[2023-09-02] MEDS: POTASSIUM CHLORIDE CRTAB 20 MEQ TABCR PO STA (09:25)
--- NOTE | 2023-09-02 09:44 | Pharmacy Report ---
Pharmacy Glycemic Short Note 2 - Date of Service September 02, 2023 - Glycemic Short BSG Results (Last 24 hours): 09/01/23 09/01/23 09/01/23 11:37 16:28 20:30 Glucose POC Glucose 251 H 214 H 224 H 09/02/23 09/02/23 06:00 07:41 Glucose 149 H POC Glucose 201 H OUTPATIENT ANTIDIABETIC REGIMEN: * Metformin 1 g PO BIDM * Glipizide 5 mg PO BIDM * Trulicity 3 mg SC weekly (Sundays) HbA1c 8.1% 09/02/23 ASSESSMENT: 09/01 * 67 units SQ insulin given over last 24 hrs * Fasting BSG this AM elevated (149 on chemistry, but 201 on finger-stick). Pt has 25 units basal on board * Post-prandial BSGs elevated yesterday - likely due to dexamethasone IV * No further doses of dexamethasone have been administered - he has no further scheduled doses ordered, but does have a PRN dose if needed for stridor * Will continue a reduced dose of basal insulin today given effects of steroid likely to dissipate today * Will continue to use a "severe/high" stress Novolog CF and CR this AM due to persistent BSG elevations, but plan to lessen doses later today as insulin sensitivity expected to improve 08/31 * MAIK is a 63 year old male POD #0 s/p spinal surgery * Received 8 mg IV dexamethasone in OR * No ongoing steroids ordered at this time * Preop blood sugar of 179 mg/dL, postop blood sugar of 181 mg/dL * Will utilize aggressive weight-based SC basal/bolus regimen today PLAN FOR INPATIENT GLYCEMIC CONTROL: * Hold outpatient oral diabetes medications * Basal insulin * Lantus 16 units SC x 1 this AM, scaled dosing this HS depending on BSG (0 units if BSG < 140, 5 units if BSG 141-220, 10 units if BSG above 220) * Reassess in AM * Bolus insulin * NovoLog per scale ACHS or Q6hrs while NPO * Goal Range: Low 110 mg/dL - High 140 mg/dL * Correction Factor: 15 mg/dL/unit * Nutritional / Prandial insulin per carb ratio of 1 unit per 5 grams CHO consumed
[2023-09-02] MEDS: MAGNESIUM OXIDE 400 MG TAB PO SCH (09:54)
--- NOTE | 2023-09-02 10:03 | Discharge Summary ---
Date of Service September 02, 2023 Admission HPI Per Admitting Provider This is a 63-year-old male presents chronic persistent neck and arm pain and failing course of nonoperative care is here for surgical intervention. Principal Diagnosis Cervical spinal stenosis with radiculopathy Discharge Data Allergies Allergy/AdvReac Type Severity Reaction Status Date / Time No Known Allergies Allergy Verified 09/01/23 06:32 Consultations 09/01/23 11:01 Consult Hospitalist Routine Procedures Performed Operation Date: 09/01/23 07:45 Actual Procedures p C6-C7 Anterior Cervical Discectomy and Fusion, Spinal Cord Monitoring(Not Applicable) - Myron Zambrano DO Ordered Studies 09/01/23 07:45 FL cervical 2-3V Routine Hospital Course (1) Cervical stenosis of spinal canal: Patient underwent anterior cervical discectomy and fusion tolerated this well was taken to the orthopedic for postoperative postop day #1 he was swallowing well. Excellent strength testing. No hoarseness. Pain controlled. ELVA drain decreasing probably. Subsequent discharge home. Discharge orders instructions found in chart for further review. Total Time Total Time Spent Total Time Spent (In Minutes): 20 minutes Discharge Plan Discharge Items Patient Disposition: Home - Self-Care Reason For Visit: Cervical Spine Pain, Cubital Tunnel Syndrome, Cerv Discharge Diagnosis: cervical stenosis Activity: As commented below Non-emergency contact: Primary Care Provider Call non-emergency contact if: you have any medication questions Follow-up/Referrals: Alvaro Kohler MD [Primary Care Provider] - Diet: Regular Addtl Attending Provider Instructions: ACTIVITY RECOMMENDATIONS: SELF CARE INSTRUCTIONS AFTER CERVICAL FUSIONS 1. No smoking. Smoking drastically decreases the chance of a solid fusion. 2. No bending, lifting more than 5 pounds, or twisting (roll like a log when turning in bed). 3. You may shower 3 days after surgery. Thoroughly dry wound. Do not soak in the tub. 4. Cervical collar: Must be worn at all times including sleeping. You may remove the brace only to bath, eat and if you are sitting in a recliner. 5. Please walk as much as you can for exercise. Gradually increase the distance that you walk as your endurance increases. SPECIAL CARE INSTRUCTIONS: VERY IMPORTANT TO READ AND REVIEW A. Do not take any anti-inflammatory medications (i.e. Indocin, Advil, Aspirin, Naprosyn, Aleve, Motrin, etc.) as these may inhibit the chance of a solid fusion. Tylenol is okay to take. B. Your surgical incision has been closed with a cosmetic suture under the skin that will dissolve in about 6 weeks. In 14 days, you can use a pair of clean scissors and cut the suture that is left outside of the skin at the ends of your incision. C. Complications are uncommon, but please contact us if you have any signs or symptoms of: 1. wound infection (fever higher than 102.5 degrees F, redness, separation of wound, drainage, or increasing pain from the incision) 2. blood clots in legs (pain, swelling, redness and warmth in legs) 3. urinary tract infection (fever higher than 102.5 degrees, burning upon urination or increased frequency of urination) 4. nerve problems (inability to walk on your toes or heels, numbness, loss of bowel or bladder control) 5. any other symptoms that concern you. D. Please call the office at if you have any concerns or questions about your operation or recovery. MANAGING PAIN AFTER SPINAL SURGERY 1. Narcotic medication is intended for short-term use and will be provided for surgical pain. Surgical pain usually lasts for a period of 4-6 weeks. Narcotic medication includes Percocet, Vicodin, Darvocet, Tylenol #3 or Lortab. 2. Longer-term pain is more appropriately treated with non-narcotic medication such as Tylenol ES. 3. Muscle spasm is not appropriately treated with narcotics. Muscle relaxers such as Soma, Flexeril or Skelaxin can be used along with Tylenol ES. 4. Remember that we all live with some "aches and pains". This is not unusual or uncommon after an injury or as we get older. 5. We will provide appropriate medication within the normal guidelines of their prescribed use. We will also be very cautious and aware of potential abuse and extended duration of patients' medication needs. 6. Please allow 2-3 days to process refills. Prescriptions will not be mailed but must be picked up at the office. FOLLOW UP VISIT: Keep your scheduled follow-up appointment. Any questions, please call the office at . Addtl Steam Cleaner Provider Instructions: Your hemoglobin A1c is 8.1% - make sure to follow up with your primary care doctor regarding your diabetes. Pending Studies at Discharge: No Stand-Alone Forms: [facility], Smoking Cessation Medications and DC Order Prescriptions: Continued gabapentin 400 mg Capsule 400 mg PO TID metformin 1,000 mg Tablet 1,000 mg PO BID insulin lispro [Humalog U-100 Insulin] 100 unit/mL Solution 13 - 18 sliding scale dose SUBCUT USEASDIRECTD glipizide 5 mg Tablet 5 mg PO BID Trulicity 3 mg/0.5 mL Pen Injector 3 mg SUBCUT WK Patient Comments: sundays cyclobenzaprine [Flexeril] 10 mg Tablet 10 mg PO BID fenofibrate micronized 67 mg Capsule 67 mg PO QPM amitriptyline 50 mg Tablet 50 mg PO HS meloxicam 7.5 mg Tablet 7.5 mg PO BID lisinopril 40 mg Tablet 40 mg PO QAM oxycodone [OxyContin] 20 mg Tablet,Oral Only,Ext.Rel.12 Hr 20 mg PO BID oxycodone-acetaminophen [Percocet] 10-325 mg Tablet 1 tab PO TID Discharge Orders: Discharge Order (Routine); Ordered 09/02/23 Ordered By: Myron Middleton/Other Patient Handouts: Managing Type 2 Diabetes Admission Data Admit Date/Time: 09/01/23 11:24 Attending Provider: Myron Zambrano Admit Provider: Myron Zambrano Primary Care Provider: Alvaro Kohler Other Providers: Allegra Schwartz
[2023-09-02] MEDS: hydrALAZINE HCL 25 MG TAB PO STA (11:28)
[2023-09-02] MEDS ORDERED: LANTUS PER UNIT CHARGE SC SCH (21:00)
== END 2023-09-02 12:31 | disposition home or self-care (01) | DRG 472 ==
LOC: ASU 06:03 → 3E 11:24